=== PATIENT | male | born 2000 | race Hispanic/Latino ===

== ENCOUNTER 2024-03-25 11:14 | Emergency (ER) | payer OTHER ==
[2024-03-25] MEDS ORDERED: Boostrix 0.5 ML (Tdap) VIAL (>/=7 yrs of age) ONE (11:20)
[2024-03-25] MEDS ORDERED: Lidocaine 1% (PF) 30 ML VIAL ONE (11:20)
[2024-03-25] MEDS ORDERED: Bacitracin 1 PK ONE (11:59)
== END 2024-03-25 12:15 | disposition home or self-care (01) ==
LOC: NAV ERS 11:14
DX: S61.217A Laceration without foreign body of left little finger without damage to nail, initial encounter (principal); W31.89XA Contact with other specified machinery, initial encounter; Y93.89 Activity, other specified
CPT/HCPCS: 12001; 90471; 90715